=== PATIENT | male | born 1965 | race Caucasian/White ===

== ENCOUNTER 2019-04-12 14:10 | Emergency (ER) | payer OTHER ==
[~2019-04-12] VITALS: Ht 177.8 cm; Wt 98.0 kg
[~2019-04-12 14:10] MED LIST: KETO10TA2 PO; ORPH100T PO
[2019-04-12] MEDS ORDERED: VASOTEC20 M1 (15:00)
[2019-04-12] MEDS ORDERED: METFORMIN HCL500 MG (15:00)
[2019-04-12] MEDS ORDERED: KAPSPARGO SPRI100 MG (15:01)
== END 2019-04-12 23:18 | disposition home or self-care (01) ==
LOC: ER 14:10
DX: K76.0 Fatty (change of) liver, not elsewhere classified (principal); R10.32 Left lower quadrant pain; E11.9 Type 2 diabetes mellitus without complications